=== PATIENT | female | born 1965 | race Hispanic/Latino ===

== ENCOUNTER 2016-12-19 09:07 | Outpatient (CLI) | payer MEDICAID ==
--- NOTE | 2016-12-19 15:18 | Mammography Report ---
BILATERAL DIGITAL SCREENING MAMMOGRAM WITH CAD: 12/19/16 09:07:00 CLINICAL: Routine screening.Breast cancer survivor status post right partial mastectomy February 2015. COMPARISON:12/19/15 FINDINGS: The breasts are heterogeneously dense, which may obscure small masses. Stable mild right upper postsurgical scar. No mass, suspicious architectural distortion or suspicious calcifications. IMPRESSION: No mammographic evidence of malignancy. BI-RADS CATEGORY: 2 -- Benign RECOMMENDATION: Routine mammographic screening in one year. COMMENT: Patient follow-up letters are generated via our [employer] application.
== END 2016-12-19 09:08 | disposition home or self-care (01) ==
LOC: SPVWC 09:07
PROVIDERS: ATTEND Internal Medicine Hematology & Oncology
DX: Z12.31 Encounter for screening mammogram for malignant neoplasm of breast (principal)
CPT/HCPCS: 77067; G0202

== ENCOUNTER 2017-01-22 09:22 | Outpatient (CLI) | payer MEDICAID ==
--- NOTE | 2017-01-22 11:45 | Mammography Report ---
BONE DEXA:01/22/17 09:22:00 CLINICAL: Postmenopausal. No comparison. TECHNIQUE: Two site bone DEXA performed on an Hologic scanner. FINDINGS: The average BMD of the lumbar spine L1-L4 is 0.936g/cm squared with a T-score of -1.0 and a Z-score of -0.1. The average BMD of the left hip is 0.811g/cm squared with a T-score of -1.1 and a Z-score of by 0.5. The femoral neck BMD is 0.640g/cm squared with a T score of -1.9 and a Z score of -0.9. IMPRESSION: 1. WHO classification: Normal with average fracture risk based on lumbar spine measurements. 2. WHO classification: Osteopenia with increased fracture risk based on left femoral neck measurement. RECOMMENDATION: Clinical correlation and routine screening. DEFINITIONS: BMD = Bone Mineral Density T-score = BMD related to mean peak bone mass of young adult (mean expressed in Standard Deviation) Z-score = Age matched BMD expressed in SD World Health Organization (WHO) Diagnostic Criteria Normal T-score > -1 SD Osteopenia T-score between -1 and -2.4 SD Osteoporosis T-score -2.5 SD or below NOTE: BMD is not the only risk factor for fracture. One should also consider factors such as the patient's age, risk of falling, previous osteoporotic fracture, family history of osteoporotic fractures, current smoker, and low body weight. Z-scores are not calculated if >80 years of age.
== END 2017-01-22 09:23 | disposition home or self-care (01) ==
LOC: SPVWC 09:22
PROVIDERS: ATTEND Internal Medicine Hematology & Oncology
DX: M85.88 Other specified disorders of bone density and structure, other site (principal); Z78.0 Asymptomatic menopausal state
CPT/HCPCS: 77080

== ENCOUNTER 2017-12-20 09:13 | Outpatient (CLI) | payer MEDICAID ==
--- NOTE | 2017-12-20 14:24 | Mammography Report ---
BILATERAL DIGITAL SCREENING MAMMOGRAM WITH CAD: 12/20/17 09:13:00 CLINICAL: Routine screening.Breast cancer survivor status post right partial mastectomy . COMPARISON: FINDINGS: The breasts are heterogeneously dense, which may obscure small masses. Stable right postsurgical scar. No mass, suspicious architectural distortion or suspicious calcifications. IMPRESSION: No mammographic evidence of malignancy. BI-RADS CATEGORY: 2 -- Benign RECOMMENDATION: Routine mammographic screening in one year. COMMENT: Patient follow-up letters are generated via our [employer] application.
== END 2017-12-20 09:14 | disposition home or self-care (01) ==
LOC: SPVWC 09:13
PROVIDERS: ATTEND Internal Medicine Hematology & Oncology
DX: Z12.31 Encounter for screening mammogram for malignant neoplasm of breast (principal); Z90.11 Acquired absence of right breast and nipple
CPT/HCPCS: 77067

== ENCOUNTER 2018-12-22 09:55 | Outpatient (CLI) | payer MEDICAID ==
--- NOTE | 2018-12-22 15:36 | Mammography Report ---
BILATERAL DIGITAL SCREENING MAMMOGRAM WITH CAD: 12/22/18 09:55:00 CLINICAL: Routine screening.Breast cancer survivor status post right partial mastectomy . COMPARISON:12/20/17 FINDINGS: The breasts are heterogeneously dense, which may obscure small masses. Stable right postsurgical scar. No mass, suspicious architectural distortion or suspicious calcifications. IMPRESSION: No mammographic evidence of malignancy. BI-RADS CATEGORY: 2 -- Benign RECOMMENDATION: Routine mammographic screening in one year. COMMENT: Patient follow-up letters are generated via our [employer] application.
== END 2018-12-22 09:56 | disposition home or self-care (01) ==
LOC: SPVWC 09:55
PROVIDERS: ATTEND Internal Medicine Hematology & Oncology
DX: Z12.31 Encounter for screening mammogram for malignant neoplasm of breast (principal)
CPT/HCPCS: 77067

== ENCOUNTER 2019-05-22 10:03 | Outpatient (CLI) | payer MEDICAID ==
--- NOTE | 2019-05-25 10:55 | Mammography Report ---
Bone densitometry. History: History of right breast cancer and on tamoxifen. Procedure: Patient scanned with an Hologic DEXA System. Examination was performed of the lumbar spi ne and left hip. Comparison: 01/22/2017. Findings: The BMD of the lumbar spine is 0.939 gm/cm2 with a T-score of -1.0 and a Z score of 0.1. Change from previous exam is +0.36%. The bone mineral density (BMD) of the left femoral neck is 0.644 gm/cm2 with a T-score of -1.8 and a Z score of -0.8. The BMD of the total left hip is 0.834 gm/cm2 with a T-score of -0.9 and a Z score o f -0.2. Change in the femoral neck is +0.7% and change in the total BMD is +2.8%. Impression: 1. WHO classification: Normal based on lumbar spine measurements and a modest improvement in spine BM D compared to the last exam. 2. WHO classification: Osteopenia with increased fracture risk based on left femoral neck measurement s. A modest improvement in left femoral neck and total left hip BMD compared to the last exam. Signer Name: Parish Lynn MD Signed: 05/25/2019 10:51 AM Workstation Name: [id number]
== END 2019-05-22 10:04 | disposition home or self-care (01) ==
LOC: SPVWC 10:03
PROVIDERS: ATTEND Internal Medicine Hematology & Oncology
DX: M85.88 Other specified disorders of bone density and structure, other site (principal); D05.11 Intraductal carcinoma in situ of right breast
CPT/HCPCS: 77080

== ENCOUNTER 2019-12-25 12:47 | Outpatient (CLI) | payer MEDICAID ==
--- NOTE | 2019-12-28 12:59 | Mammography Report ---
DIGITAL SCREENING MAMMOGRAM WITH CAD, 12/25/2019 INDICATION: Routine screening mammography. TECHNIQUE: Digital bilateral 2D mammography was obtained in the craniocaudal and mediolateral obliq ue projections. This examination was interpreted with the benefit of Computer-Aided Detection analysi s. COMPARISON: 12/22/2018, 12/20/2017 and 12/19/2015 FINDINGS: Breast Density: The breasts are heterogeneously dense, which may obscure small masses. There is no evidence of dominant mass, suspicious calcifications or architectural distortion in eithe r breast. IMPRESSION: No mammographic evidence of malignancy. Follow up recommendation: Routine yearly BI-RADS Category 2: Benign. A "normal" or negative report should not discourage follow up or biopsy of a clinically significant f inding. A written summary of these findings will be mailed to the patient. The patient will be entered into a mammography reporting system which will generate a reminder letter for the patient's next appointmen t at the appropriate interval. The [employer] recommends yearly mammograms starting at age 40 and continuing as l tom as a woman is in good health. Breast MRI is recommended for women with an approximate 20-25% or greater lifetime risk of breast cancer, including women with a strong family history of breast or ova ian cancer or who have been treated for Hodgkin's disease. Signer Name: Parish Lynn MD Signed: 12/28/2019 12:55 PM Workstation Name: [id number]
== END 2019-12-25 12:48 | disposition home or self-care (01) ==
LOC: SPVWC 12:47
PROVIDERS: ATTEND Internal Medicine Hematology & Oncology
DX: Z12.31 Encounter for screening mammogram for malignant neoplasm of breast (principal)
CPT/HCPCS: 77067

== ENCOUNTER 2020-12-26 09:20 | Outpatient (CLI) | payer MEDICAID ==
--- NOTE | 2020-12-26 10:42 | Mammography Report ---
DIGITAL SCREENING MAMMOGRAM WITH CAD, 12/26/2020 CLINICAL INFORMATION / INDICATION: Routine screening mammography. SCREENING MAMMO TECHNIQUE: Digital bilateral 2D mammography was obtained in the craniocaudal and mediolateral obliqu e projections. This examination was interpreted with the benefit of Computer-Aided Detection analysis . COMPARISON: 12/25/2019 FINDINGS: Breast Density: The breasts are heterogeneously dense, which may obscure small masses. No dominant mass, suspicious calcifications, or architectural distortion in either breast. Old scar again noted on the right. Mild bilateral nodularity again noted as well. IMPRESSION: No mammographic evidence of malignancy. Follow up recommendation: Routine yearly BI-RADS Category 2: Benign. A "normal" or negative report should not discourage follow up or biopsy of a clinically significant f inding. A written summary of these findings will be mailed to the patient. The patient will be entered into a mammography reporting system which will generate a reminder letter for the patient's next appointmen t at the appropriate interval. The [employer] recommends yearly mammograms starting at age 40 and continuing as l tom as a woman is in good health. Breast MRI is recommended for women with an approximate 20-25% or greater lifetime risk of breast cancer, including women with a strong family history of breast or ova ian cancer or who have been treated for Hodgkin's disease. Signer Name: Jorge L Melvin MD Signed: 12/26/2020 10:38 AM Workstation Name: [id number]
== END 2020-12-26 09:21 | disposition home or self-care (01) ==
LOC: SPVWC 09:20
PROVIDERS: ATTEND Internal Medicine Hematology & Oncology
DX: Z12.31 Encounter for screening mammogram for malignant neoplasm of breast (principal); N63.10 Unspecified lump in the right breast, unspecified quadrant; N63.20 Unspecified lump in the left breast, unspecified quadrant
CPT/HCPCS: 77067

== ENCOUNTER 2021-01-02 09:19 | Outpatient (CLI) | payer MEDICAID ==
--- NOTE | 2021-01-02 10:02 | Mammography Report ---
DEXA BONE DENSITY SCAN INDICATION / CLINICAL INFORMATION: OSTEOPENIA M85.80 OTHER SPECIFIED DISORDERS OF BONE DENSITY. 55 years Female COMPARISON: DEXA scan from 05/22/2019. LUMBAR SPINE, L1-L4: - Bone mineral density (BMD) = 0.902 g/cm2. - T-score = -1.3 - Z-score = -0.1 Change (%) since most recent prior (if available): -3.9 RIGHT HIP: Not evaluated. LEFT HIP, NECK : - Bone mineral density (BMD) = 0.643 g/cm2. - T-score = -1.9 - Z-score = -0.7 Change (%) since most recent prior (if available): -0.2 IMPRESSION: 1. WHO Classification: Osteopenia. Fracture Risk: Increased. Note: 10-Year Fracture Risk (FRAX) not reported. This DEXA unit lacks FRAX functionality. BMD Reporting Guidelines (ISCD, 2015) BMD Reporting in Postmenopausal Women and in Men Age 50 and Older - T-scores are preferred. - The WHO densitometric classification is applicable. BMD Reporting in Females Prior to Menopause and in Males Younger Than Age 50 - Z-scores, not T-scores, are preferred. This is particularly important in children. - A Z-score of -2.0 or lower is defined as below the expected range for age, and a Z-score above -2.0 is within the expected range for age. - Osteoporosis cannot be diagnosed in men under age 50 on the basis of BMD alone. - The WHO diagnostic criteria may be applied to women in the menopausal transition. http://www.iscd.org/official-positions/0309-xaxh-wuazfjym-positions-adult/ Signer Name: Demar Lynch MD Signed: 01/02/2021 9:57 AM Workstation Name: [id number]
== END 2021-01-02 09:20 | disposition home or self-care (01) ==
LOC: SPVWC 09:19
PROVIDERS: ATTEND Family Medicine
DX: M85.80 Other specified disorders of bone density and structure, unspecified site (principal)
CPT/HCPCS: 77080

== ENCOUNTER 2022-01-02 09:39 | Outpatient (CLI) | payer MEDICAID ==
--- NOTE | 2022-01-03 10:04 | Mammography Report ---
DIGITAL SCREENING MAMMOGRAM WITH CAD, 01/02/2022 CLINICAL INFORMATION / INDICATION: Routine screening mammography. SCREENING MAMMO Z12.31 TECHNIQUE: Digital bilateral 2D mammography was obtained in the craniocaudal and mediolateral obliqu e projections. This examination was interpreted with the benefit of Computer-Aided Detection analysis . COMPARISON: 12/26/2020 FINDINGS: Breast Density: The breasts are heterogeneously dense, which may obscure small masses. No dominant mass, suspicious calcifications, or architectural distortion in either breast. IMPRESSION: No mammographic evidence of malignancy. Follow up recommendation: Routine yearly BI-RADS Category 1: NEGATIVE A "normal" or negative report should not discourage follow up or biopsy of a clinically significant f inding. A written summary of these findings will be mailed to the patient. The patient will be entered into a mammography reporting system which will generate a reminder letter for the patient's next appointmen t at the appropriate interval. The [employer] recommends yearly mammograms starting at age 40 and continuing as l tom as a woman is in good health. Breast MRI is recommended for women with an approximate 20-25% or greater lifetime risk of breast cancer, including women with a strong family history of breast or ova ian cancer or who have been treated for Hodgkin's disease. Signer Name: Buck Dickinson MD Signed: 01/03/2022 9:59 AM Workstation Name: [id number]
== END 2022-01-02 09:40 | disposition home or self-care (01) ==
LOC: SPVWC 09:39
PROVIDERS: ATTEND Internal Medicine Hematology & Oncology
DX: Z12.31 Encounter for screening mammogram for malignant neoplasm of breast (principal)
CPT/HCPCS: 77067